=== PATIENT | male | born 1970 | race Caucasian/White ===

== ENCOUNTER 2016-07-05 09:28 | Emergency (ER) | payer OTHER ==
[2016-07-05 09:46] VITALS: RESP 16; TEMP 97.5
--- NOTE | 2016-07-05 11:09 | UCPHY ---
H & P Time Seen by Provider: 07/05/16 10:16 Patient Type: New HPI/ROS: CHIEF COMPLAINT: [ low back pain with pop] HISTORY OF PRESENT ILLNESS: [ 42-year-old male with a sense of ache while driving over the course of the last 6 months. This has been is low back. Has never been so problematic. Virtually every day. Mild. However yesterday went to bend over reached for something ground somewhat to the right felt a pop in his back and has been in moderate to severe pain ever since. This is been strictly lumbar and radiates to both iliac crest. Does not go below the gluteal fold. He has never had trouble like this before never required physical therapy. In the interim he has tried some ice as well as some [id number] medications such as ibuprofen.] Bowel or bladder incontinence: No Prior spine instrumentation: No Prior spine imaging: No REVIEW OF SYSTEMS: Constitutional: No fever, no chills. Gastrointestinal: abdominal pain. Genitourinary: No hematuria or frequency. Skin: No rashes. Neurological: No numbness or tingling Smoking Status: Never smoked Physical Exam: General: Well-developed well-nourished. Nontoxic. Afebrile. Vital signs are stable. Trim fit appearing male Abdomen: Bowel sounds present. Soft. No distention. No palpable aortic mass. Back: No spasm. No rashes. Range of motion limited, moderately even turning in bed as typical for him SLR: Negative Great Toe Extension: Strong and symmetrical Patellar Reflex: 1+ left,trace right Ankle Reflex: Symmetrical 1+ Sensation: Normal Constitutional: Initial Vital Signs Temperature (C) 36.4 C 07/05/16 09:41 Heart Rate 58 L 07/05/16 09:41 Respiratory Rate 16 07/05/16 09:41 Blood Pressure 121/84 H 07/05/16 09:41 O2 Sat (%) 99 07/05/16 09:41 O2 Delivery Mode Room Air Allergies/Adverse Reactions: No Known Allergies Allergy (Unverified 07/05/16 09:41) Home Medications: Medication Instructions Recorded Acetaminophen [Arthritis Pain 1,300 mg PO TID PRN #60 tablet.er 07/05/16 Relief] Cyclobenzaprine [Flexeril 10 MG 20 mg PO HS PRN #15 tab 07/05/16 (*)] Oxycodone HCl 10 mg PO Q6H PRN #24 capsule 07/05/16 predniSONE [Prednisone] 30 mg PO DAILY #30 tablet 07/05/16 Medical Decision Making ED Course/Re-evaluation: [place] Prescription Drug Monitoring Program checked: Two prescriptions for lorazepam in the last total in 20 tablets with most recent prescription 2 weeks ago. No narcotics in the last 12 months Differential Diagnosis: Back pain including but not limited to muscular pain, herniated disc, spine fracture, intra-abdominal causes and urinary tract infection. Due to the extent of the pain perhaps to do with herniated disc however has not manifested in a radicular fashion at this time. I have cautioned about forward flexion and adjustment of his seating position and is to avoid seeding the 1st place He will Flexeril to help sedate him at night as well as some pain medicines, oxycodone. We will go ahead and start on prednisone initially with the transition to ibuprofen 5 days. Tylenol as needed. - Data Points Medications Given: Discontinued Medications Lorazepam (Ativan) 1 mg SL EDNOW ONE Stop: 07/05/16 11:12 Last Admin: 07/05/16 11:37 Dose: 1 mg Morphine Sulfate (Morphine) 10 mg SC EDNOW ONE Stop: 07/05/16 11:14 Last Admin: 07/05/16 11:55 Dose: 10 mg Departure - Departure Disposition: Home, Routine, Self-Care Clinical Impression: Acute degenerative disc, Low back pain Condition: Good Instructions: Low Back Strain (ED) Additional Instructions: Is important to avoid flexion Set up car seat close to the steering wheel and somewhat direct. Whenever you sit in a seat, use a towel roll to help bolster lumbar Try Hayley exercises, search the Internet for the she will find them on [employer] Flexeril to help sleep at night Oxycodone for the pain as needed, chiefly at bedtime For the 1st 5 days take the prednisone, then switch back to ibuprofen at 100 mg three times daily Tylenol extended-release. [place],. [Primary Care Provider] - As per Instructions Stand Alone Forms: Work Limited Duty, Work Excuse Prescriptions: Acetaminophen [Arthritis Pain Relief] 1,300 mg PO TID PRN #60 tablet.er PRN Reason: Pain, Moderate Cyclobenzaprine [Flexeril 10 MG (*)] 20 mg PO HS PRN #15 tab PRN Reason: Sleep/Insomnia Oxycodone HCl 10 mg PO Q6H PRN #24 capsule PRN Reason: pain predniSONE [Prednisone] 30 mg PO DAILY #30 tablet - PQRS PQRS Measurement: Not applicable
[2016-07-05] MEDS ORDERED: LORazepam 1 MG TAB SL ONE (11:11)
[2016-07-05 12:23] VITALS: BP 126/68; PULSE 55; O2SAT 96
== END 2016-07-05 12:15 | disposition home or self-care (01) ==
LOC: CED 09:28
DX: M54.5 Low back pain (principal); M51.36 Other intervertebral disc degeneration, lumbar region
CPT/HCPCS: 96372-PO; G0463-PO